=== PATIENT | female | born 1990 | race Caucasian/White ===

== ENCOUNTER 2017-12-27 12:45 | Emergency (ER) | payer OTHER ==
[~2017-12-27] VITALS: Ht 160 cm; Wt 61.4 kg
[~2017-12-27 12:45] MED LIST: DOXY100T PO; HYDR-3535 PO; HYDR1CAP30 PO; SUMA25TA2 PO; ZOFR8TAB PO
[2017-12-27 12:56] VITALS: BP 146/68; PULSE 77; RESP 20; TEMP 97.7; O2SAT 100
[2017-12-27] MEDS ORDERED: GABA100C4 PO (15:21)
[2017-12-27] MEDS ORDERED: PRED10 PO (15:21)
[2017-12-27] MEDS ORDERED: BACL10TA PO (15:21)
[2017-12-27] MEDS ORDERED: NORC5TAB PO ×2 (15:21→21:13)
[2017-12-27] MEDS ORDERED: CYCL10TA PO ×2 (15:21→21:13)
[2017-12-27 15:27] VITALS: BP 126/85; PULSE 77; RESP 17; O2SAT 100
[2017-12-27] MEDS ORDERED: SODIUM CHLORID 0.9% 500 ML INJ 500 ML IV ONE (16:15)
[2017-12-27] MEDS ORDERED: SODIUM CHLORIDE 0.9% FLUSH 10 ML FLUSH IV FLUSH PRN (16:15)
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
[2017-12-27 17:06] LABS: AUTOMATED NEUTROPHIL # 5.6 TH/MM3 (1.8-7.7); BASOPHIL % 0.5 % (0.0-2.0); EOSINOPHIL % 0.2 % (0.0-4.0); HEMATOCRIT 37.8 % (35.0-46.0); HEMOGLOBIN 13.8 GM/DL (11.6-15.3); LYMPH % 14.1 % (9.0-44.0); MEAN CELL VOLUME 88.2 FL (80.0-100.0); MEAN CORPUSCULAR HEMOGLOBIN 32.1 PG (27.0-34.0); MEAN PLATELET VOLUME 7.8 FL (7.0-11.0); MONOCYTE # 0.3 TH/MM3 (0-0.9); NEUT % 80.2 % (16.0-70.0); PLATELET COUNT 243 TH/MM3 (150-450); RED BLOOD COUNT 4.29 MIL/MM3 (4.00-5.30); RED CELL DISTRIBUTION WIDTH 12.7 % (11.6-17.2)
[2017-12-27 17:14] LABS: MEAN CORPUSCULAR HGB CONC 36.4 % (32.0-36.0)
[2017-12-27 17:26] LABS: BICARBONATE 28.6 MEQ/L (21.0-32.0); CREATININE 0.66 MG/DL (0.50-1.00)
[2017-12-27] MEDS ORDERED: CYCLOBENZAPRINE HCL 10 MG TAB PO ONE (17:30)
[2017-12-27 17:32] VITALS: BP 130/73; PULSE 59; RESP 16; O2SAT 100
[2017-12-27 19:01] VITALS: BP 131/74; PULSE 61; RESP 15; O2SAT 100
[2017-12-27 19:41] LABS: BILIRUBIN, URINE NEG (NEG); BLOOD, URINE TRACE (NEG); GLUCOSE,URINE NEG (NEG); KETONE, URINE NEG (NEG); NITRITE,URINE NEG (NEG); SQUAMOUS EPITHELIAL CELL URINE 3 /hpf (0-5); URINE COLOR LIGHT-YELLOW (YELLW/STRAW); URINE LEUKOCYTE ESTERASE NEG (NEG)
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
[2017-12-27 21:00] VITALS: BP 111/73; PULSE 55; RESP 15; O2SAT 98
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
[2017-12-27] MEDS ORDERED: VIST50CA PO (21:13)
== END 2017-12-27 21:49 | disposition home or self-care (01) ==
LOC: NEPE 12:45
DX: M54.10 Radiculopathy, site unspecified (principal); M79.602 Pain in left arm; R51 Headache; M54.2 Cervicalgia; R59.1 Generalized enlarged lymph nodes; M48.02 Spinal stenosis, cervical region; F41.9 Anxiety disorder, unspecified; F17.210 Nicotine dependence, cigarettes, uncomplicated; V49.40XA Driver injured in collision with unspecified motor vehicles in traffic accident, initial encounter
CPT/HCPCS: 73218; 80048; 81001; 84703; 85025; 96360; 99284; J7040